=== PATIENT | female | born 1985 | race Caucasian/White ===

== ENCOUNTER 2021-09-22 12:47 | Outpatient (CLI) | payer OTHER, SELFPAY ==
--- NOTE | 2021-09-22 13:00 | CRLHL7_ITS ---
For Patients: As a result of the Century Cures Act, medical imaging exams and procedure reports are released immediately into your electronic medical record. You may view this report before your referring provider. If you have questions, please contact your health care provider. INDICATION: Evaluate anatomy. COMPARISON: 07/05/2021 TECHNIQUE: Real time hurtado scale imaging of the fetus was performed as well as color Doppler analysis of the umbilical vessels. FINDINGS: Sonographic imaging demonstrates a single living intrauterine gestation. Fetus demonstrates a regular cardiac rate of 150 beats per minute. Fetus has a breech position. The placenta lies posteriorly without evidence of placenta previa. The edge of the placenta is located 6.4 cm from the internal cervical os. Amniotic fluid volume appears normal. Single deepest vertical pocket: 4.3 cm. The cervix is closed and measures 3.3 cm in length. The composite ultrasound gestational age is calculated at 19 weeks 4 days with an estimated sonographic due date of 02/12/2022. The estimated weight is 330 grams which lies at the 57th %. The following biometric measurements were obtained: Biparietal diameter: 4.2 cm/18 weeks 5 days 9th% Head circumference: 16.4 cm/19 weeks 1 day 13th% Abdominal circumference: 15.4 cm/20 weeks 4 days 69th% Femur length: 3.2 cm/19 weeks 6 days 40th% The HC/AC ratio measures: 1.06 range (1.08-1.26) On anatomic survey, there is a normal appearance of the cerebral ventricles, cavum septi pellucidi, cisterna magna and cerebellum. The nose, lips, and facial profile appear normal. The cervical, thoracic and lumbar spine are well visualized and appear normal. There is a normal four-chamber heart view and the left and right ventricular outflow tracts appear normal. The diaphragm and stomach appear normal. The kidneys and bladder also appear normal. There is a normal three-vessel cord and the cord insertion site is located 1.3 cm from the edge of the placenta. The four extremities appear normal. IMPRESSION: Normal anatomic survey. Marginal cord insertion into the placenta. Sonographic gestational age 19 weeks 4 days and sonographic due date 02/12/2022. Estimated weight 57th percentile. Abdominal circumference 69th percentile. Dictated by Ortiz Whelan MD @ 09/22/2021 3:22:00 PM (Electronically Signed)
== END 2021-09-22 12:48 | disposition home or self-care (01) ==
LOC: US 12:47
PROVIDERS: Visit Provider Advanced Practice Midwife
DX: Z34.92 Encounter for supervision of normal pregnancy, unspecified, second trimester (principal); Z3A.19 19 weeks gestation of pregnancy
CPT/HCPCS: 76805

== ENCOUNTER 2021-11-16 13:17 | Outpatient (CLI) | payer OTHER, SELFPAY ==
[2021-11-18 18:45] LABS: Rapid Plasma Reagin (RPR) Non Reactive (Non Reactive)
== END 2021-11-16 13:18 | disposition home or self-care (01) ==
LOC: NFLDREF 13:37
PROVIDERS: Visit Provider Advanced Practice Midwife
DX: Z34.82 Encounter for supervision of other normal pregnancy, second trimester (principal); Z36.89 Encounter for other specified antenatal screening; Z3A.27 27 weeks gestation of pregnancy
CPT/HCPCS: 86592; 86850; 87086

== ENCOUNTER 2021-12-15 12:45 | Outpatient (CLI) | payer OTHER, SELFPAY ==
--- NOTE | 2021-12-15 13:00 | CRLHL7_ITS ---
For Patients: As a result of the Century Cures Act, medical imaging exams and procedure reports are released immediately into your electronic medical record. You may view this report before your referring provider. If you have questions, please contact your health care provider. INDICATION: Third trimester scan, evaluate growth. MARGINAL CORD INSERTION COMPARISON: 09/22/2021 TECHNIQUE: Real time hurtado scale imaging of the fetus was performed. FINDINGS: Sonographic imaging demonstrates a single living intrauterine gestation. Fetus demonstrates a regular cardiac rate of 149 beats per minute. Fetus has a vertex position. The placenta lies posteriorly. Amniotic fluid volume appears normal and there is a single deepest vertical pocket: 4.6 cm. The estimated weight is 1752gm which lies at the 24th %. On the prior OB ultrasound exam dated 09/22/2021 the estimated weight was at the 57th%. BPD 81st percentile. HC 68th percentile. AC 23rd percentile. FL 13th percentile. The HC/AC ratio measures 1.13 range (0.96-1.13). IMPRESSION: Sonographic gestational age 32 weeks 2 days in a sonographic due date 02/07/2022. Good correlation with dates. Normal interval growth. Estimated weight 24th percentile. Abdominal circumference 23rd percentile. The cord insertion into the placenta is approximately 1.8 cm from the placental edge. Dictated by Ortiz Whelan MD @ 12/16/2021 8:30:58 AM (Electronically Signed)
== END 2021-12-15 12:46 | disposition home or self-care (01) ==
LOC: US 12:46
PROVIDERS: Visit Provider Advanced Practice Midwife
DX: Z34.93 Encounter for supervision of normal pregnancy, unspecified, third trimester (principal); Z3A.32 32 weeks gestation of pregnancy
CPT/HCPCS: 76816

== ENCOUNTER 2022-01-12 09:03 | Outpatient (CLI) | payer OTHER, SELFPAY ==
--- NOTE | 2022-01-12 09:15 | CRLHL7_ITS ---
For Patients: As a result of the Century Cures Act, medical imaging exams and procedure reports are released immediately into your electronic medical record. You may view this report before your referring provider. If you have questions, please contact your health care provider. INDICATION: female. Marginal cord insertion. Followup. Assess growth. TECHNIQUE: Transabdominal obstetrical ultrasound. COMPARISON: December 15, 2021. FINDINGS: Single living intrauterine in vertex presentation. Posterior placenta. heart rate 148 beats per minute. Normal amniotic fluid. Single deepest pocket measurement 7.0 cm. Biparietal diameter 9 cm, 36 weeks 3 days, 74th percentile. Head circumference 32.4 cm, 36 weeks 5 days, 39th percentile. Abdominal circumference 31.4 cm, 35 weeks 2 days, 44th percentile. Femur length 6.64 cm, 34 weeks 1 day, 10th percentile. Estimated weight 2639 g which lies at the 34th percentile, previously the 24th percentile. Composite calculated ultrasound age 35 weeks 5 days with a sonographic due date of February 11, 2022. Appropriate growth and maturation since the most recent study. The head to abdominal circumference ratio is normal at 1.03 (0.93-1.09). The cord insertion site is not specifically evaluated today. IMPRESSION: Single living intrauterine in vertex presentation. Composite calculated ultrasound age 35 weeks 5 days with a sonographic due date of February 11, 2022. Estimated weight is at the 34th percentile previously the 24th percentile. Dictated by Terry Norton MD @ 01/12/2022 10:16:14 AM (Electronically Signed)
== END 2022-01-12 09:04 | disposition home or self-care (01) ==
LOC: US 09:04
PROVIDERS: Visit Provider Advanced Practice Midwife
DX: Z34.83 Encounter for supervision of other normal pregnancy, third trimester (principal); Z3A.35 35 weeks gestation of pregnancy
CPT/HCPCS: 76816; 87081; 87653

== ENCOUNTER 2022-01-30 14:00 | Outpatient (RCR) | payer OTHER, SELFPAY | END 2022-04-26 13:53 | disposition home or self-care (01) | PROVIDERS: Visit Provider Advanced Practice Midwife | DX: O26.899 Other specified pregnancy related conditions, unspecified trimester (principal); R10.2 Pelvic and perineal pain; Z51.89 Encounter for other specified aftercare | CPT/HCPCS: 97110; 97140; 97162; 97535 ==

== ENCOUNTER 2022-02-03 05:02 | Inpatient (IN) | payer OTHER, SELFPAY ==
[2022-02-03] VITALS (14 sets, daily range): BP systolic 99–123; BP diastolic 53–81; PULSE 63–132; RESP 16; TEMP 36.6–36.8; O2SAT 96–98; BMI 32.4
--- NOTE | 2022-02-03 05:44 | P.LDBA_ITS ---
Subjective History of Present Illness Narrative: Patient is being admitted to Labor and Delivery for early labor with a history of precipitous labor and deliveries.? She is a 36 year old at 39 Weeks, 0 Days gestation.? Her full history and physical was dictated by Hernandez Rock CNM on 01/19/2022.? Please see this for details.? 1. Anxiety ?? ? Taking Sertraline 50 mg, working well ?? ? Not currently seeing anyone 2. Rh Neg, B- ?? ? NEEDS Rhogam at 28 weeks-received 11/16/21 ?? ? NEEDS Rhogam pp 3. Rubella Non-immune ?? ? NEEDS MMR 4. Marginal Cord Insertion 32 week growth US: EFW 24%, cord insertion 1.8 cm from placenta edge. 36 week growth US: EFW 34%? ?? OB - H&P: Exam Physical Exam: Vital signs: Pulse BP Pulse Ox 130 H 116/81 98 02/03/22 05:07 02/03/22 05:07 02/03/22 05:07 Narrative: OBJECTIVE:? Vitals per EMR? Psychiatric:? Alert and oriented x3? HEENT:? Normocephalic, atraumatic? Neck:? Supple without adenopathy or thyromegaly? Lungs:? Clear to auscultation bilaterally? Heart:? Regular rate and rhythm, no murmur, rub or gallop? Abdomen:? Soft, nontender, and gravid? Extremities:? No edema or erythema? Pelvic:? SVE: 4cm/75%/--1? Membrane status:? intact? presentation:? vertex? FHT:? Moderate Variability.? Positive Accels.? No Decels. Baseline 150.? [place]:? Ctx Q3-5min? OB - Problem Based A/P Additional Plan (1) Marginal insertion of umbilical cord: Status: Acute (2) : Status: Acute (3) History of precipitous labor and delivery: Status: Acute (4) Rh negative, maternal: Status: Acute Plan ASSESSMENT:? at 39.0 weeks gestation? GBS negative Rh ngative, B-? Uncomplicated ? ?? PLAN:? 1. Desires water . Consent signed. Hep C negative.? 2. Candidate for analgesia of choice. Planning unmedicated .? 3. Anticipate ? 4. Expectant management at this time.? 5. IV not needed at this time. Ok to place if patient meets unit criteria for placement. 6. Intermittent auscultation unless meets criteria for increase surveillance.? Delivery/Labor/Induction Plan Plan: expectant management
[2022-02-03 06:29] LABS: SARS PCR* Negative SARS-CoV-2 (Negative)
--- NOTE | 2022-02-03 11:21 | PM.OBPNL ---
Subjective Date Seen: 02/03/22 Narrative: Anika is coping well with labor pain/contractions. She is currently being supported by her . Understands the current plan of care. Questions answered to her satisfaction. She is continuing position changes to encourage labor progression. She current reports moderate intense contractions with some lower back pain. She is planning a waterbirth and is aware she can get into the tub at anytime. Objective Exam: Constitutional: Alert and oriented x3, moderate distress, coping well? Vital signs stable, see nurse documentation?? Abdomen: gravid, contractions palpate moderate with contractions and soft between? Vital Signs: Last Vital Signs Temp 97.9 F 02/03/22 07:55 Pulse 87 02/03/22 07:55 Resp 16 02/03/22 07:55 BP 123/81 02/03/22 07:55 Pulse Ox 98 02/03/22 05:07 Pelvic Exam Dilation (cm): 6 Effacement (%): 80 Station: -1 Comments: Bag intact Contractions Monitor mode: Palpation Contraction Frequency: 5 min Contraction pattern: Regular Contraction intensity: Moderate Assessment Assessment: active labor Station: -1 Tracing Comments: Intermittent monitoring reassuring. Maternal Status: Coping well. Plan Plan: ASSESSMENT:? 36 at 39 0/7 weeks gestation? complicated by:?Anxiety, Rh negative, Marginal cord insertion Labor type: Spontaneous, Active labor? Reassuring heart tones? Labor complicated by: none? GBS negative? ? PLAN:? 1. Routine intrapartum cares as ordered. Continue with expectant management. Discussed AROM but declines at this time. 2. Monitoring per policy, intermittent? 3. Planning unmedicated . Desires water . Consent signed. Hep C negative. Candidate for analgesia of choice if desired.?? 4. Patient encouraged to reposition and ambulate to promote physiologic labor and .? 5. Anticipate ?
--- NOTE | 2022-02-03 14:14 | P.OBPRC_ITS ---
Procedure Delivery date: 02/03/22 Procedure Done: Global Events: Other (Marginal cord insertion) Intrapartal Events: Precipitous Labor <3 Hrs (From onset of regular contractions, patient had prodromol labor on and off for days prior) and Other (Light meconium before delivery) Delivery monitor: external FHT and external uterine Route of delivery: Laceration description: None Estimated blood loss (mL): 300 Anesthesia type: None Disposition: floor Narrative: The patient is a 36 year-old admitted on 02/03/2022 at 39 Weeks, 0 Days gestation for spontaneous onset of labor.? Cervical exam on admission was 4 cm/80 % effaced/-1 station with membranes intact in vertex presentation.? Contractions were every 5-8 minutes.? heart rate demonstrated baseline 155 bpm with moderate variability, + accelerations, - decelerations; a category 1 tracing.? SROM occurred just before delivery with thin/light meconium stained fluid. ? Labor Analgesia:? none, waterbirth ? Pitocin:? No, declined AMTSL ? Labor onset:? 02/03/2022 ? Complete:? 1325, assumed with pushing ? Pushing:? 1325 ? heart tones during second stage were assessed intermittently while pushing and were reassuring throughout. ? Patient was admitted for spontaneous onset of labor and progressed normally. S ROM noted at 1330, right before delivery, with light mec stained fluid. Patient was assumed complete with pushing at 1325. of a viable female at 1339 in kneeling in the tub. Vertex delivered OA. No nuchal cord or shoulder. Body delivered easily and without incident. Infant passed from between mothers legs up to mothers arms and placed on mothers abdomen with a vigorous cry. APGARS were 8 at one minute and 9 at five minutes respectively. Mouth was bulb suctioned. After 5+ minutes, patient was assisted with in arms, still attached by cord to placenta. Large clot was passed into tub upon transfer. Cord was clamped and cut at > 5 minutes. Intact placenta with a 3 vessel cord delivered spontaneously at 1358. Second large clot delivered with placenta. Fundus firm and bleeding was then minimal. Patient declined AMTSL, agreeable to IM pitocin if bleeding increases. Placenta suspicious for abruption with dark clotted area near edge, large clot from tub was also dark. Perineum intact. QBL 300 cc. Mother and baby stable; mother plans to breastfeed. Infant weight pending. ? Placenta delivered spontaneously and complete at 1358 with a 3 vessel cord. Suspicious appearance for possible abruption. Sent to pathology. ? Mother and were stable after delivery. ? Lacerations:? Intact Blood loss: 300 mL. Blood loss measurement type: QBL ? Sponge and needles counts are correct. [place] Infant Gender: Female presentation: vertex Placental Delivery Description: Spontaneous Cord Description: 3 Vessels OB Vag Delivery Procedures Additional Procedures ECV: No Cook Catheter Insertion: No NST: No D&C: No Laceration Repair: No Tubal Ligation : No Other: No
[2022-02-03] MEDS: IBUPROFEN 600 MG TABLET PO ×2 (14:35→22:07)
[2022-02-03] MEDS: ACETAMINOPHEN 500 MG TABLET 1000 MG PO (19:13)
[2022-02-03] MEDS: SERTRALINE 50 MG TABLET PO (22:08)
[2022-02-04 00:45] VITALS: BP 109/66; PULSE 53; RESP 16; TEMP 36.6; O2SAT 97
[2022-02-04] MEDS: ACETAMINOPHEN 500 MG TABLET 1000 MG PO (01:10)
[2022-02-04 03:46] VITALS: BP 104/66; PULSE 54; RESP 16; TEMP 36.6; O2SAT 96
[2022-02-04] MEDS: IBUPROFEN 600 MG TABLET PO ×2 (06:24→11:34)
[2022-02-04 07:30] VITALS: BP 104/70; PULSE 66; RESP 16; TEMP 36.4; O2SAT 97
--- NOTE | 2022-02-04 09:05 | PM.OBDSVD1 ---
DS: Providers Provider Time Seen by Provider: 09:05 Date Seen: 02/04/22 Date of admission: 02/03/22 05:02 Primary care physician: Not a Local Provider Admitting Clinician: Arleen Marquez CNM Attending Physician on discharge: Jena Santos CNM Date of Discharge: 02/04/22 DS: Diagnosis Discharge Diagnosis (1) state: Status: Acute (2) Rh negative, maternal: Status: Acute (3) Lactating mother: Status: Acute Exam Narrative: Exam Narrative: VSS GENERAL APPEARANCE: ?normal affect, alert, no distress MOOD: ?appropriate, relaxed and happy HEENT: normocephalic, neck supple, full ROM CHEST: ?Symmetrical chest wall movement. ?Normal respiratory effort. ?Clear to auscultation HEART: ?regular rate and rhythm ABDOMEN: ?soft, non-tender. Uterine fundus is firm, 2 fingerbreadths below Umbilicus, Midline and is appropriate for the stage of recovery. ?Bowel sounds present. PERINEUM: ?deferred, no lacerations or repairs, pt denies pain or concerns EXTREMITIES: ?normal and no edema Const: Vital Signs, click to edit/add: Vital Signs - 24 hr 02/03/22 10:45 02/03/22 11:46 02/03/22 14:00 Temperature 97.9 F Pulse Rate 97 67 Pulse Rate [Pulse Oximeter] Respiratory Rate 16 Blood Pressure 109/68 110/69 Blood Pressure [Ri ght Arm] Pulse Oximetry Oxygen Delivery Me thod 02/03/22 14:18 02/03/22 14:31 02/03/22 14:47 Temperature Pulse Rate 73 71 71 Pulse Rate [Pulse Oximeter] Respiratory Rate Blood Pressure 114/58 L 111/53 L 112/61 Blood Pressure [Ri ght Arm] Pulse Oximetry Oxygen Delivery Me thod 02/03/22 14:59 02/03/22 15:21 02/03/22 15:51 Temperature Pulse Rate 75 92 103 H Pulse Rate [Pulse Oximeter] Respiratory Rate Blood Pressure 122/62 122/60 102/55 L Blood Pressure [Ri ght Arm] Pulse Oximetry Oxygen Delivery Me thod 02/03/22 16:13 02/03/22 12:50 02/03/22 20:37 Temperature 98.2 F 97.9 F Pulse Rate 75 76 Pulse Rate [Pulse Oximeter] 63 Respiratory Rate 16 Blood Pressure 109/58 L 104/66 Blood Pressure [Ri ght Arm] 99/62 Pulse Oximetry 96 Oxygen Delivery Me thod Room Air 02/04/22 00:45 02/04/22 03:46 02/04/22 07:30 Temperature 97.8 F 97.9 F 97.6 F Pulse Rate Pulse Rate [Pulse Oximeter] 53 L 54 L 66 Respiratory Rate 16 16 16 Blood Pressure Blood Pressure [Ri ght Arm] 109/66 104/66 104/70 Pulse Oximetry 97 96 97 Oxygen Delivery Me thod Room Air Room Air Room Air OB - DS: Summary Hospital Course Hospital Course: Anika is a 36 year old G 5 P 3 at 39 0/7 weeks gestation that was admitted to the Center on 02/03/22 for spontaneous onset of labor. She had an uncomplicated vaginal delivery in the waterbirth tub. She delivered a viable female . The patient feels well. ?The pain is well controlled with current medications. ?She has no new complaints. Vitals have been stable.? She has remained afebrile.? Has a good appetite, is tolerating a general diet. ?She is voiding without difficulty.? She is passing gas and has not had a bowel movement.? She is ambulating and denies any dizziness.? Has small amount of rubra lochia with no clots. She is breast feeding and reports it is going well, her only concern is the possibility of a tongue tie, which her first two babies also had. Anika stated that her first 2 babies had frenulectomies which helped significantly, she is planning to have this baby evaluated as soon as possible. They are not planning to do the medications before discharge, discussed the options for delaying Hep B vaccines until later, and the risks for baby not receiving vitamin K. Pt stated she understood and denied any questions, confirmed that senior peoplesoft developer would be in to see baby shortly and she could discuss the options more with them at that time if she would like. the patient has done well. She would like to go home today. Planning natural family planning for contraception. Pt did not receive RhoGam because baby's blood is also Rh Negative. Peripartum Data Infant delivery method: Vaginal Laceration description: None complications: none Gender: Female Discharge Plan: Home Status at Discharge Functional status at discharge: independent ambulation Overall status at discharge: patient is progressing back to baseline Time Spent with Patient Time attestation: Total time spent providing and/or coordinating discharge services: Time spent: Less than 30 minutes Discharge Plan Discharge Disposition: Home, Self-Care Date of Admission: 02/03/22 05:02 Attending Provider on Discharge: Jena Santos Primary Care Provider: Provider,Not a Local Condition: Stable Anticipated Discharge Date/Time: 02/04/22 13:30 Discharge Medications: New acetaminophen 500 mg Tablet 1,000 mg PO Q6H PRNQty: 0 0RF ibuprofen 600 mg Tablet 600 mg PO Q6H PRNQty: 60 1RF Continued ferrous sulfate [FeroSul] 325 mg (65 mg iron) tablet 325 mg PO QDAY sertraline 50 mg tablet 50 mg PO QDAY loratadine [Claritin] 10 mg tablet 10 mg PO QDAY prenat.vits,aga,[id number] Tablet 1 tab PO QDAY [id number] [Fioricet] 50-300-40 mg capsule 1 - 2 cap PO Q4-6H PRN (Reason: pain) Qty: 20 1RF Discharge Orders: Discharge Order (Routine); Ordered 02/04/22 Ordered By: Jena Santos Patient Education: OB Vaginal/Breast Feeding Activity Level: Activity as Tolerated Discharge Diet: Regular Follow Up Appointments: [facility] [Provider Group] Forms: MyHealth Info Instructions Discharge Comments: Stable day 1 2 week and 6 week visits in [facility]
[2022-02-04 11:28] VITALS: BP 102/70; PULSE 56; RESP 16; TEMP 36.6; O2SAT 96
== END 2022-02-04 15:11 | disposition home or self-care (01) | DRG 807 ==
LOC: OB OUT 05:03 → OB 05:03
PROVIDERS: Advanced Practice Midwife; Admitting Provider Advanced Practice Midwife; Visit Provider Advanced Practice Midwife
DX: O69.89X0 Labor and delivery complicated by other cord complications, not applicable or unspecified (principal); Z37.0 Single live birth; O99.344 Other mental disorders complicating childbirth; F41.9 Anxiety disorder, unspecified; O77.0 Labor and delivery complicated by meconium in amniotic fluid; Z3A.39 39 weeks gestation of pregnancy
CPT/HCPCS: 87635; 88307; A9270

== ENCOUNTER 2023-11-21 14:16 | Outpatient (CLI) | payer OTHER, SELFPAY | END 2023-11-21 14:17 | disposition home or self-care (01) | LOC: LKVREF 14:17 | PROVIDERS: PCP Emergency Medicine; Visit Provider Emergency Medicine | DX: Z13.228 Encounter for screening for other metabolic disorders (principal) | CPT/HCPCS: 80048 ==

== ENCOUNTER 2024-03-03 10:30 | Outpatient (CLI) | payer OTHER, SELFPAY ==
--- NOTE | 2024-03-03 10:45 | CRLHL7_ITS ---
For Patients: As a result of the Cures Act, medical imaging exams and procedure reports are released immediately into your electronic medical record. You may view this report before your referring provider. If you have questions, please contact your health care provider. BILATERAL DIAGNOSTIC MAMMOGRAM WITH COMPUTER-AIDED DETECTION AND TOMOSYNTHESIS LEFT BREAST ULTRASOUND CLINICAL HISTORY: LEFT breast skin changes. COMPARISON: None. TECHNIQUE: Digital BILATERAL mammogram in four projections with computer-aided detection. Tomosynthesis was used in this interpretation. Real-time ultrasound imaging of LEFT breast with imaging documentation. BREAST COMPOSITION: The breasts are heterogeneously dense, which may obscure small masses. FINDINGS: 3D CC/MLO BILATERAL mammogram images submitted. No suspicious mass or architectural distortion. No suspicious calcifications or adenopathy. Targeted LEFT breast ultrasound performed in the area of concern at 6 o`clock, 3 cm from the nipple. Normal fibroglandular tissue is present. No fibrocystic change or mass. IMPRESSION: No suspicious findings. No evidence of malignancy. RECOMMENDATIONS: Clinical follow-up. Age-appropriate screening mammography. A lay language report of this examination will be provided to the patient. BI-RADS Category 2: Benign Dictated by Ortiz Whelan MD @ 03/03/2024 11:41:18 AM /sp SP/Dictated by: Ortiz Whelan MD @ 03/03/2024 11:41:00 AM (Electronically Signed)
--- NOTE | 2024-03-03 11:15 | CRLHL7_ITS ---
For Patients: As a result of the Century Cures Act, medical imaging exams and procedure reports are released immediately into your electronic medical record. You may view this report before your referring provider. If you have questions, please contact your health care provider. PLEASE SEE BILATERAL BREAST DIAGNOSTIC MAMMOGRAM PERFORMED SAME DAY. CRL:sp SP/Dictated by: Ortiz Whelan MD @ 03/03/2024 11:41:00 AM (Electronically Signed)
== END 2024-03-03 10:31 | disposition home or self-care (01) ==
LOC: MAMMO 10:30
PROVIDERS: Visit Provider Registered Nurse
DX: R23.4 Changes in skin texture (principal)
CPT/HCPCS: 76642; 77066; G0279

== ENCOUNTER 2024-04-24 09:06 | Outpatient (CLI) | payer OTHER, SELFPAY | END 2024-04-24 09:07 | disposition home or self-care (01) | LOC: FRMREF 09:07 | PROVIDERS: Visit Provider Registered Nurse | DX: Z13.6 Encounter for screening for cardiovascular disorders (principal) | CPT/HCPCS: 80061 ==

== ENCOUNTER 2024-11-28 08:37 | Outpatient (CLI) | payer OTHER, SELFPAY ==
--- NOTE | 2024-11-28 08:45 | CRLHL7_ITS ---
For Patients: As a result of the Cures Act, medical imaging exams and procedure reports are released immediately into your electronic medical record. You may view this report before your referring provider. If you have questions, please contact your health care provider. DIGITAL DIAGNOSTIC BILATERAL MAMMOGRAM USING TOMOSYNTHESIS AND COMPUTER-AIDED DETECTION BILATERAL BREAST ULTRASOUND CLINICAL HISTORY: BILATERAL breast lumps. COMPARISON: 03/03/2024, 05/18/2021. TECHNIQUE: Digital BILATERAL mammogram in four projections with computer-aided detection. Tomosynthesis was used in this interpretation. Real-time ultrasound imaging of BILATERAL breast with imaging documentation. BREAST COMPOSITION: The breasts are heterogeneously dense, which may obscure small masses. FINDINGS: 3D CC/MLO BILATERAL mammogram images submitted. No suspicious masses or architectural distortion. No suspicious calcifications or adenopathy. Targeted BILATERAL ultrasound performed. At 11 o`clock 1 cm LEFT breast there is normal fibroglandular tissue. Normal fibroglandular tissue is also present at 7 o`clock 1 cm from the nipple RIGHT breast. No fibrocystic change or solid mass. No suspicious findings. IMPRESSION: No evidence of malignancy. RECOMMENDATIONS: Clinical follow-up. Age-appropriate screening mammography. A lay language report of this examination will be provided to the patient. BI-RADS Category 2: Benign Dictated by Ortiz Whelan MD @ 11/28/2024 9:39:04 AM jj/Dictated by: Ortiz Whelan MD @ 11/28/2024 9:39:00 AM (Electronically Signed)
--- NOTE | 2024-11-28 09:15 | CRLHL7_ITS ---
For Patients: As a result of the Cures Act, medical imaging exams and procedure reports are released immediately into your electronic medical record. You may view this report before your referring provider. If you have questions, please contact your health care provider. SEE DIGITAL DIAGNOSTIC BILATERAL MAMMOGRAM PERFORMED SAME DAY CRL:junie zaman/Dictated by: Ortiz Whelan MD @ 11/28/2024 9:39:00 AM (Electronically Signed)
== END 2024-11-28 08:38 | disposition home or self-care (01) ==
LOC: MAMMO 08:37
PROVIDERS: Visit Provider Registered Nurse
DX: N63.10 Unspecified lump in the right breast, unspecified quadrant (principal); R92.333 Mammographic heterogeneous density, bilateral breasts; N63.20 Unspecified lump in the left breast, unspecified quadrant
CPT/HCPCS: 76642; 77066; G0279